=== PATIENT | male | born 1970 | race Caucasian/White ===

== ENCOUNTER 2020-10-28 08:18 | Emergency (ER) | payer BC, OTHER ==
[~2020-10-28] VITALS: Ht 172.7 cm; Wt 97.5 kg
[2020-10-28 08:44] LABS: ABSOLUTE NEUTROPHILS 3.4 thou/uL (1.4-8.2); BASOPHILS 0.6 % (0.0-2.0); EOSINOPHILS 3.1 % (0.0-3.0); HEMATOCRIT 39.3 % (42.0-52.0); HEMOGLOBIN 13.4 gm/dL (14.0-18.0); LYMPHOCYTES 25.4 % (24.0-44.0); MCH 28.5 pg (26.0-34.0); MCHC 34.1 g/dL (28.0-37.0); MCV 83.5 fL (80.0-100.0); MONOCYTES 9.4 % (1.0-8.0); PLATELET COUNT 299 thou/uL (150-400); POLYS 61.5 % (36.0-66.0); RBC 4.71 mil/uL (4.50-6.00); RDW 14.6 % (10.5-14.5); WBC 5.6 thou/uL (4.0-11.0)
[2020-10-28 09:04] LABS: ANION GAP 8 mmol/L (7-16); BUN 30 mg/dL (7-18); CALCIUM 8.8 mg/dL (8.5-10.1); CHLORIDE 106 mmol/L (98-107); CO2 27 mmol/L (21-32); GLUCOSE 100 mg/dL (74-106); POTASSIUM 4.2 mmol/L (3.5-5.1); SODIUM 141 mmol/L (136-145)
[2020-10-28 09:14] LABS: ALBUMIN 4.3 g/dL (3.4-5.0); SGOT 30 U/L (15-37); SGPT 33 U/L (16-63); TOTAL BILIRUBIN 0.5 mg/dL (0.2-1.0); TOTAL PROTEIN 7.3 g/dL (6.4-8.2); TROPONIN-I <0.06 ng/mL (<0.06)
[2020-10-28 10:27] VITALS: BP 113/74
--- NOTE | 2020-10-29 07:15 | EKG ---
[address] [address] ELECTROCARDIOGRAM REPORT Name: DESI SAUCEDO Room #: [facility] Yuri#: [id number] Admission: 10/28/20 Attend Phys: Discharge: 10/28/20 Date of : 74 Report #: [id number] [facility] ED Test Date: 2020-10-28 Test Time: 08:23:12 Pat Name: DESI SAUCEDO Department: Room: Gender: M [employer]: unknown : 1970 Requested By: Dewayne Varela Order Number: [id number] MD: Matty Olson Measurements Intervals [place] Rate: 70 P: 34 [place]: 190 QRS: -32 QRSD: 99 T: 9 QT: 388 QTc: 419 Interpretive Statements Sinus rhythm Left axis deviation No previous ECG available for comparison Electronically Signed On 10-29-2020 7:15:31 CDT by Matty Olson [email or web address] <ELECTRONICALLY SIGNED> By: Matty Olson MD, [facility] 10/29/20 0715 0823 2 Matty Olson MD, FACC /EPI
== END 2020-10-28 10:27 | disposition home or self-care (01) ==
LOC: ER 08:18
PROVIDERS: Student in an Organized Health Care Education/Training Program
DX: R07.89 Other chest pain (principal); Z88.6 Allergy status to analgesic agent